=== PATIENT | female | born 1955 | race Caucasian/White ===

== ENCOUNTER 2019-12-22 19:46 | Inpatient (IN) | payer MEDICARE, MEDICAID, OTHER ==
[~2019-12-22 19:46] MED LIST: Iopamidol-370 76% 500 ML 1 ML ONE
[2019-12-22] MEDS ORDERED: Morphine 4 MG/ML VIAL ONE ×2 (20:25→23:43)
[2019-12-22] MEDS ORDERED: Ondansetron PF 4 MG/2 ML Vial ONE (20:25)
[2019-12-22 20:39] LABS: #Basophils 0.1 thou/uL (0.0-0.2); #Eosinphils 0.1 thou/uL (0.0-0.7); #Lymphocytes 1.3 thou/uL (1.20-3.40); #Monocytes 0.9 thou/uL (0.11-0.59); #Neutrophils 8.8 thou/uL (1.40-6.50); %Basophils 0.6 % (0.0-1.0); %Eosinophils 1.2 % (0.0-10.0); %Lymphocytes 11.5 % (21.0-51.0); %Monocytes 8.2 % (0.0-10.0); %Neutrophils 78.4 % (42.0-75.0); Hemoglobin 13.5 g/dL (12.0-16.0); Mean Corpuscular HGB CONC 33.3 g/dL (32.0-36.0); Mean Corpuscular Hemoglobin 32.8 pg (27.0-31.0); Mean Corpuscular Volume 98.2 fL (78.0-98.0); Mean Platelet Volume 7.9 fL (7.4-10.4); Platelet Count 196 thou/uL (130-400); RBC Distribution Width 11.5 % (11.5-14.5); Red Blood Cell (RBC) Count 4.11 mill/uL (4.20-5.40); White Blood Cell (WBC) Count 11.2 thou/uL (4.8-10.8)
[2019-12-22 21:07] LABS: ALT (SGPT) 7 U/L (8-55); AST (SGOT) 21 U/L (5-34); Albumin 3.5 g/dL (3.4-4.8); Alkaline Phosphatase 160 U/L (40-110); Anion Gap 11 mmol/L (10-20); BUN (Urea Nitrogen) 13 mg/dL (9.8-20.1); Bilirubin, Total 0.2 mg/dL (0.2-1.2); Calc. Creatinine Clearance 0 mL/min (70-130); Calcium 8.3 mg/dL (7.8-10.44); Carbon Dioxide 22 mmol/L (23-31); Chloride 104 mmol/L (98-107); Estimated GFR-MDRD 85; Globulin 3.2 g/dL (2.4-3.5); Glucose 109 mg/dL (80-115); Lipase 14 U/L (8-78); Potassium 4.4 mmol/L (3.5-5.1); Protein, Total 6.7 g/dL (6.0-8.3); Sodium 133 mmol/L (136-145)
--- NOTE | 2019-12-22 22:06 | CT ---
CT ABDOMEN AND PELVIS PERFORMED WITH CONTRAST ENHANCEMENT: 12/22/19 HISTORY: Patient with a diagnosis of sigmoid volvulus which required surgery. Cholecystectomy was also perform ed at the time of the colon surgery. Now complaining of abdominal distention and pain. COMPARISON: A 11/18/19 study. Lung bases shows some bibasilar somewhat ground glass opacities which could represent some early pneu monitis change or just be on the basis of atelectasis related to less than optimal inspiration. The l iver, spleen, and pancreas regions appear unremarkable. The gallbladder has been removed. Right and left adrenal glands are normal in appearance. The kidneys are not obstructed. There is alexandr ical thinning involving the lower pole region of the left kidney. Tiny cysts are identified. No signi ficant periaortic or mesenteric adenopathy. There is marked gaseous distention of the ascending, nelson sverse and descending colon. there is an anastomotic suture line seen at the junction of the descendi ng and sigmoid colon. The colon appears to be narrowed at the level of the anastomosis but directly b elow this level. This sigmoid colon is distended with stool all the way to the rectum. There is no p neumatosis and no free fluid demonstrated. No evidence of any abscess collection. Scoliotic change of the spine is noted. IMPRESSION: 1. Marked gaseous distention of the colon to the level of the anastomotic suture line of the sig moid colon. There appears to be focal narrowing at the anastomosis; however, the colon is very dilate d below this level and completely stool filled from the level of the anastomotic suture line to the r ectum. No free fluid, abscess or other findings. 2. Post cholecystectomy change. 3. Mildly atrophic left kidney. 4. Scoliosis and arthritic changes of the spine. POS: Eliseo
[2019-12-22] MEDS ORDERED: Benzocaine 20% Spray 60 ML CAN ONE (22:13)
[2019-12-22] MEDS ORDERED: Lidocaine Viscous Sol 2% 15 ml UD Cup ONE ×2 (22:13→22:38)
[2019-12-23] MEDS ORDERED: Morphine 2 MG/ML VIAL SLOW IVP PRN (01:35)
[2019-12-23] MEDS ORDERED: Ondansetron PF 4 MG/2 ML Vial IVP PRN ×2 (01:45→13:40)
[2019-12-23] MEDS ORDERED: Ondansetron ODT 4 MG TAB SL PRN (01:45)
[2019-12-23] MEDS ORDERED: Acetaminophen 325 MG TAB PO PRN ×4 (01:45→18:24)
[2019-12-23] MEDS ORDERED: HYDROcodone/Acetaminophen 5/325 mg Tablet PO PRN ×2 (01:45)
[2019-12-23] MEDS ORDERED: Sodium Chloride 0.9% 1,000 ML IV SCH (01:45)
[2019-12-23 01:46] VITALS: BMI 23.8
[2019-12-23] MEDS ORDERED: MD-Gastroview 120 ML BOT ONE (09:24)
[2019-12-23] MEDS: Morphine 2 MG/ML VIAL SLOW IVP PRN (13:52)
[2019-12-23] MEDS: D5 1/2 NS w/20 mEq KCL 1,000 ML IV SCH ×2 (13:53→22:09)
[2019-12-23] MEDS ORDERED: Fleet Enema 133 ML BOT PR SCH (14:00)
[2019-12-23] MEDS ORDERED: Pantoprazole 40 MG VIAL IVP SCH (14:00)
--- NOTE | 2019-12-23 17:14 | RAD ---
Gastrografin enema HISTORY: Abdomen pain. History of volvulus. Disimpaction. FINDINGS: There is marked gaseous distention of the colon and partial gaseous distention of the small bowel. Gastrografin contrast was carefully administered per rectum. There was immediate opacification of the gaseous distended rectum and left colon. Postsurgical changes consistent with re cent sigmoidectomy. Narrowing at the anastomosis is noted, although there is free flow of Gastrografin. Lumen estimated at 1.9 cm diameter. There was successful contrast opacification to the level of the transverse colon, although the gaseou s distention of the colon prevented further retrograde opacification. No evidence of leak from the colon/anastomosis. IMPRESSION : Recent sigmoid colectomy. With marked gaseous distention of the colon, there is relative narrowing at the anastomosis (1.9 cm), but no obstruction of contrast flow. No evidence of leak or recurrent volvulus.
[2019-12-23] MEDS ORDERED: Sodium Chloride 0.9% (PF) 10 ML VIAL FS PRN (18:45)
[2019-12-23] MEDS ORDERED: Acetaminophen 325 MG TAB PER TUBE PRN ×3 (20:00)
[2019-12-23] MEDS: clonazePAM 1 MG TAB PER TUBE SCH (22:06)
[2019-12-23] MEDS: OXcarbazepine 300 MG/5 ML UDCUP PER TUBE SCH (22:06)
[2019-12-23] MEDS: levETIRAcetam 500 mg/5 ml Oral Solution PER TUBE SCH (22:07)
[2019-12-23] MEDS: Pantoprazole 40 MG VIAL IVP SCH (22:08)
[2019-12-23] MEDS: Zolpidem Tartrate 5 MG TAB PER TUBE SCH (22:09)
[2019-12-23] MEDS: PHENobarbital 32.4 MG TAB PER TUBE SCH (22:20)
[2019-12-23] MEDS: Lacosamide 50 mg Tablet PO SCH (22:21)
--- NOTE | 2019-12-24 01:04 | PDOC.CONS ---
- Consultation Encounter Date: 12/24/19 Encounter Time: 00:15 Consulting provider: Dr. Vicente Reason for consult: Medical management CC: Abdominal distention and pain. HPI: 64-year-old woman with a history of developmental delay and seizure disorder recently hospitalized for sigmoid volvulus and gallstones, status post cholecystectomy and colectomy with end anastomosis presented to the emergency department with a complaint of abdominal pain and distention. X-ray of the abdomen showed dilated loops of large bowel and small bowel patient was subsequently admitted to the surgical service for further management. Hospitalist service is consulted to assist with management of her medical issues which significantly include epilepsy and GERD. Past medical history: Epilepsy, GERD, history of CVA with residual hemiplegia and dysarthria Past surgical history: Cholecystectomy, colectomy Allergies: No known drug allergies Current medications: Medication Instructions Recorded Confirmed Type Furosemide 20 mg PO DAILY 11/19/19 12/23/19 History OXcarbazepine [Oxcarbazepine] 600 mg PO BID 11/19/19 12/23/19 History PHENobarbital 32.4 mg PO BID 11/19/19 12/23/19 History Potassium Chloride 20 meq PO BID 11/19/19 12/23/19 History Zolpidem Tartrate [Ambien] 5 mg PO HS 11/19/19 12/23/19 History Acetaminophen [Tylenol Regular 650 mg PO Q6H PRN tab 11/25/19 12/23/19 Rx Strength] Ipratropium/Albuterol Sulfate 3 ml NEB Q4H PRN neb 11/25/19 12/23/19 Rx [DuoNeb] Lacosamide [Vimpat] 200 mg PO BID tab 11/25/19 12/23/19 Rx Polyethylene Glycol 3350 [Miralax] 17 gm PO DAILY pk 11/25/19 12/23/19 Rx clonazePAM [Klonopin] 1 mg PO TID tab 11/25/19 12/23/19 Rx levETIRAcetam [Keppra Oral 1,500 mg PO BID 30 Days #1000 ml 11/25/19 12/23/19 Rx Solution] Family history: Reviewed and noncontributory Social history: Non-smoker, does not drink alcohol. No illicit drug use. Review of systems Except as documented, all other systems reviewed and negative Physical examination: General: Not in acute distress. HEENT: PERRLA, EOMI, anicteric sclera, conjunctiva not pale. Neck: Supple, no elevated JVD, no thyromegaly. Lungs: Clear to auscultation bilaterally. No rhonchi, no rales, no crackles. Heart: S1-S2 heard, rapid, no murmur no gallop no rub. Normal capillary refill. Abdomen: Soft, nontender, nondistended, no hepatosplenomegaly. Normal bowel sounds Extremities: No pedal edema. Bilateral club feet, left upper extremity contracted. Neuro: No cranial nerve deficit, left hemiplegia Psychiatry: Awake, not agitated. Skin: Warm and dry, no rashes. A/P: 1. Bowel obstruction: Management per surgery-primary team. Optimize electrolytes. Monitor BMP and replete electrolytes as needed. 2. Seizure disorder: Continue home antiepileptics. Can remove suction the tube for couple of hours after NG tube administration. We will have Ativan IV as needed for breakthrough seizures. 3. GERD: IV Protonix. I am unable to discuss advanced care planning due to lack of capacity and no family member by bedside.
[2019-12-24] MEDS ORDERED: Lorazepam 2 MG/ML VIAL SLOW IVP PRN ×2 (01:05→10:55)
--- NOTE | 2019-12-24 05:49 | HP ---
CHIEF COMPLAINT: Abdominal pain. HISTORY OF PRESENT ILLNESS: Ms. Albright is a 64-year-old woman with a severe seizure disorder and developmental delay, nonambulatory, who presented last month with a sigmoid volvulus. She underwent sigmoid colectomy and had rapid resumption of bowel function. She did have a prolonged hospitalization due to uncontrolled seizures and concern for dysphagia which limited her advancement of diet, but was able to be advanced with aspiration precautions and was discharged home. About a week after her surgery, she was doing fine until shortly before her presentation to the emergency room when she developed fairly severe abdominal pain. No nausea or vomiting and unable to really report when she last had flatus or bowel movements. Plain films at an outside ER were concerning for small bowel obstruction, so they sent her back to [facility], where a CT scan showed colonic distention and the colon was quite distended down to the level of the anastomosis which appeared relatively narrow; however, there was no stool above this level, just a lot of gas. Below the level of the anastomosis, however, the entire rectum was packed with stool. The ER was planning to perform disimpaction. Before they could do that, the patient had two large spontaneous bowel movements. They gave her a Fleet enema to try to clear out the rest of her rectum and see if she would then decompress her colon, but she continued to have abdominal pain, so she was admitted. She received additional enemas today without much improvement. She continues to intermittently have abdominal pain and she cannot tell me if she is passing flatus. PAST MEDICAL HISTORY: Developmental delay and epilepsy. Chart notes report hemiplegia and dysarthria from a stroke, but upon discussion with the patient and her uncle who is her guardian, they deny any history of stroke or heart attack. She has had frequent falls and broken bones as a result of poor balance and is now nonambulatory. PAST SURGICAL HISTORY: Left hip ORIF and ankle fracture and sigmoid colectomy about a month ago. FAMILY HISTORY: Noncontributory. SOCIAL HISTORY: She does not smoke, drink, or use illicit drugs. Her uncle is her guardian, medical power of prosecuting attorney and the patient states that he has authority to make decisions on her behalf. OUTPATIENT MEDICATIONS: Include, 1. Clonazepam 1 mg p.o. t.i.d. 2. Lasix 20 mg p.o. daily. 3. Vimpat 200 mg p.o. b.i.d. 4. Levetiracetam 1500 mg p.o. b.i.d. 5. Oxcarbazepine 600 mg p.o. b.i.d. 6. Phenobarbital 32.4 p.o. b.i.d. 7. MiraLAX daily. 8. Potassium 20 mEq p.o. b.i.d. 9. Ambien 5 mg p.o. at bedtime. 10. P.r.n. DuoNeb. 11. P.r.n. Tylenol. PHYSICAL EXAMINATION: GENERAL: Reveals a pleasant woman, in no acute distress. She denies any pain currently. She denies any nausea. She does have an NG tube in place, but there is not much output. HEENT: Unremarkable. NECK: Supple without lymphadenopathy or thyroid nodules. HEART: Regular in its rate and rhythm without murmurs, rubs, or gallops. LUNGS: Clear to auscultation bilaterally. ABDOMEN: Soft, mildly tender to palpation in the right abdomen greater than left abdomen. No rigidity, rebound, or guarding. Incisions are well healed. No palpable masses or hernias. Bowel sounds are diminished. EXTREMITIES: Warm and well perfused. NEURO: Diffusely weak. Speech is slow, but understandable. No witnessed seizures since admission. RECTAL: There was a moderate amount of liquid stool in the rectal vault, some of which she passed during the rectal examination. There was no passage of flatus during the examination. LABORATORY DATA: White count is mildly elevated. IMAGING DATA: CT images are reviewed and I agree with the written report. ASSESSMENT: Anastomotic stricture, but no evidence of stool impaction proximal to the anastomosis. She did have stool impacted in the rectum, but spontaneously evacuated most of this; however, she has not passed significant amount of flatus since that time. The patient does have some chronic colonic dysfunction with her history of sigmoid volvulus and it is possible that with relative colonic atony that a stricture that is not causing any obstruction may still be enough to cause the colon to become distended. The other explanation is that she developed fecal impaction which then caused retrograde I am going to order a Gastrografin enema to evacuate the rest of the stool in the rectum and get a better look at the anastomosis. Unfortunately, her options are not great at this point. She is about a month out from surgery, which is not the ideal time to intervene either colonoscopically or surgically. On the other hand with a potentially partially obstructing stricture, promotility agents may not be the best option either. She had a wide anastomosis at the time of her surgery using a 75 mm stapler, so if she has stricture this rapidly after surgery, then repeat operation with revision of the anastomosis could re-stricture. Given her overall medical state, if I do need to reoperate, I would recommend a colostomy which I know the patient and her family were hoping to avoid. In addition, if the primary problem is colonic dysmotility, a colostomy may not completely address that problem and she could continue to have colonic distention and dysfunction. On the other hand, an ileostomy would be difficult for her to manage and would put her at high risk for dehydration and other problems related to ileostomy, which are not as well as tolerated and in the elderly and infirm. I am going to ask Gastroenterology to see her and gain their input. I will need to have a discussion with her power of prosecuting attorney. I did try to reach her uncle today, but was only able to leave a voicemail. I am going to order all of her home medications since she had fairly difficult to manage seizures after missing just a few doses of her antiseizure medications admission, and I will ask hospitalist team to help manage her medical issues. Job ID: [id number]
[2019-12-24] MEDS: Morphine 2 MG/ML VIAL SLOW IVP PRN (06:07)
[2019-12-24] MEDS: D5 1/2 NS w/20 mEq KCL 1,000 ML IV SCH ×4 (06:40→20:21)
[2019-12-24 06:49] LABS: #Eosinphils 0.2 thou/uL (0.0-0.7); #Lymphocytes 1.2 thou/uL (1.20-3.40); #Neutrophils 6.9 thou/uL (1.40-6.50); %Basophils 0.2 % (0.0-1.0); %Eosinophils 1.7 % (0.0-10.0); %Lymphocytes 13.2 % (21.0-51.0); %Monocytes 10.8 % (0.0-10.0); %Neutrophils 74.1 % (42.0-75.0); Hemoglobin 11.8 g/dL (12.0-16.0); Mean Corpuscular HGB CONC 32.9 g/dL (32.0-36.0); Mean Corpuscular Hemoglobin 33.2 pg (27.0-31.0); Mean Platelet Volume 7.5 fL (7.4-10.4); Platelet Count 175 thou/uL (130-400); RBC Distribution Width 11.3 % (11.5-14.5); Red Blood Cell (RBC) Count 3.56 mill/uL (4.20-5.40); White Blood Cell (WBC) Count 9.3 thou/uL (4.8-10.8)
[2019-12-24 07:17] LABS: Anion Gap 10 mmol/L (10-20); BUN (Urea Nitrogen) 5 mg/dL (9.8-20.1); Calc. Creatinine Clearance 104 mL/min (70-130); Carbon Dioxide 23 mmol/L (23-31); Chloride 106 mmol/L (98-107); Estimated GFR-MDRD Greater than 90; Glucose 113 mg/dL (80-115); Potassium 3.7 mmol/L (3.5-5.1); Sodium 135 mmol/L (136-145)
--- NOTE | 2019-12-24 08:13 | RAD ---
Radiograph abdomen 2 views: 12/24/2019 7:50 AM HISTORY: 64-year-old female with abdominal distention. FINDINGS: A total of 3 images, supine and left lateral decubitus. Gaseous distention of tortuous loops of colon occupying entire abdominal field on supine view. Air-fluid levels in distended colon on lateral view. No pneumoperitoneum identified on lateral decubi tus view. Enteric contrast material residual in the rectum, but not in the rest of the colon. Decompressed deniz l loop in the lower pelvis. Excreted IV contrast material in the urinary bladder. IMPRESSION: Gaseous distention of colon.
[2019-12-24 09:04] LABS: Magnesium 1.8 mg/dL (1.6-2.6); Phosphorus 2.6 mg/dL (2.3-4.7)
[2019-12-24] MEDS: PHENobarbital 32.4 MG TAB PER TUBE SCH (09:21)
[2019-12-24] MEDS: Lacosamide 50 mg Tablet PO SCH (09:22)
[2019-12-24] MEDS: clonazePAM 1 MG TAB PER TUBE SCH ×3 (09:23→20:18)
[2019-12-24] MEDS: levETIRAcetam 500 mg/5 ml Oral Solution PER TUBE SCH (09:23)
[2019-12-24] MEDS: Pantoprazole 40 MG VIAL IVP SCH ×2 (09:24→20:21)
[2019-12-24] MEDS: OXcarbazepine 300 MG/5 ML UDCUP PER TUBE SCH ×2 (09:44→20:19)
--- NOTE | 2019-12-24 09:59 | PDOC.GSPN ---
Surgery Progress Note: Subj - Subjective Narrative: Patient is feeling fine this morning. She denies any abdominal pain. She denies passing flatus. She did have some bowel movements yesterday after the Gastrografin enema. Vital signs are stable and labs are okay. Her abdomen is soft nontender nondistended. Her colon is still very dilated on abdominal film but all the Gastrografin has either been evacuated or is in her rectum. There is none retained proximal to the anastomosis. Assessment/plan: Severely dilated and redundant colon with anastomotic narrowing status post resection of sigmoid volvulus. I was able to reach Ms. Albright's uncle today by phone and discuss her situation with him. I also discussed the case with Dr. Reyes of gastroenterology. Certainly the degree of narrowing that she has at her anastomosis should not keep gas or liquid stool from passing, but her colon remains very dilated. The Gastrografin has all come back down into the rectum and she has evacuated some of it overnight. I think the primary problem is severe colonic dysmotility, and I think she will continue to have problems with this. She has a very dilated and redundant colon and I think her problems would likely persist even with a descending colostomy. However, a total colostomy and ileostomy would be quite morbid in her situation and will put her at risk for dehydration, leakage, skin erosions and other problems. I think the best compromise is to perform a left colectomy and a transverse colostomy, although there is certainly a risk that she could have continued problems with cecal distention and dysfunction, in which case another surgery to resect the right colon and perform an ileostomy might be necessary. I do however think this would be easier for her to manage then an ileostomy from a fluid balance and electrolyte standpoint. The other alternative would be to try to dilate the anastomosis and see if this helps, along with an aggressive bowel regimen to prevent disimpaction, but I really think the anastomotic narrowing is just a contributing factor and that the underlying issue is chronic lifelong functional constipation and resulting colonic atony. The uncle is going to disc uss the issue with his niece and I am going to have the wound care team do some colostomy education. If they decide to proceed, I will put her on the operating room schedule for tomorrow for a left colectomy and transverse colostomy. If they want to try more conservative measures then Dr. Reyes will assist. Surgery Progress Note: Obj - Vital signs Vital signs: Vital Signs - Most Recent Temp Pulse Resp BP Pulse Ox 98.6 F 49 L 16 96/59 L 99 12/24/19 07:19 12/24/19 07:19 12/24/19 07:19 12/24/19 07:19 12/24/19 07:19 Surgery Progress Note: Results - Labs Result Diagrams: 12/24/19 06:17 12/24/19 06:17 Lab results: Laboratory Results - last 12 hr 12/24/19 12/24/19 12/24/19 06:17 06:17 06:17 WBC 9.3 RBC 3.56 L Hgb 11.8 L Hct 35.9 L MCV 101.0 H MCH 33.2 H MCHC 32.9 RDW 11.3 L Plt Count 175 MPV 7.5 Neutrophils % 74.1 Lymphocytes % 13.2 L Monocytes % 10.8 H Eosinophils % 1.7 Basophils % 0.2 Neutrophils # 6.9 H Lymphocytes # 1.2 Monocytes # 1.0 H Eosinophils # 0.2 Basophils # 0.0 Sodium 135 L Potassium 3.7 Chloride 106 Carbon Dioxide 23 Anion Gap 10 BUN 5 L Creatinine 0.56 L Estimated GFR (MDRD) Greater than 90 Glucose 113 Calcium 8.0 Phosphorus 2.6 Magnesium 1.8
[2019-12-24] MEDS ORDERED: Magnesium 2 GM/50 ML 2 GM in Premix Bag 1 BAG IVPB SCH (11:00)
[2019-12-24] MEDS ORDERED: Labetalol HCl 100 MG/20 ML VIAL SLOW IVP PRN (11:01)
[2019-12-24] MEDS ORDERED: cloNIDine 0.1 MG TAB PO PRN (11:01)
[2019-12-24 12:47] LABS: SARS-CoV-2 MS2 Positive; SARS-CoV-2 N Gene Negative; SARS-CoV-2 S Gene Negative; SARS-CoV-2 by NAA Not Detected (NotDetected); SARS-CoV-2 orf1ab Negative
[2019-12-24] MEDS ORDERED: Bisacodyl 10 MG SUPP FS SCH (14:30)
[2019-12-24] MEDS: Bisacodyl 10 MG SUPP PR SCH (17:30)
[2019-12-24] MEDS: levETIRAcetam In NaCl (Iso-Os) 1,500 MG in Premix Bag 1 BAG IVPB SCH (20:11)
[2019-12-24] MEDS: Zolpidem Tartrate 5 MG TAB PER TUBE SCH (20:19)
[2019-12-24] MEDS: Lacosamide 200 MG in Sodium Chloride 0.9% 50 ML IVPB SCH (21:21)
[2019-12-24] MEDS: PHENobarbital Sodium 65 MG/ML VIAL SLOW IVP SCH (21:22)
[2019-12-24] MEDS: Lorazepam 2 MG/ML VIAL SLOW IVP PRN (23:38)
[2019-12-25] MEDS: Bisacodyl 10 MG SUPP PR SCH ×2 (02:07→14:44)
[2019-12-25] MEDS: D5 1/2 NS w/20 mEq KCL 1,000 ML IV SCH ×2 (05:36→16:03)
[2019-12-25] MEDS: Lorazepam 2 MG/ML VIAL SLOW IVP PRN (05:37)
[2019-12-25 05:50] LABS: #Eosinphils 0.1 thou/uL (0.0-0.7); #Lymphocytes 1.3 thou/uL (1.20-3.40); #Monocytes 0.7 thou/uL (0.11-0.59); #Neutrophils 6.3 thou/uL (1.40-6.50); %Eosinophils 1.8 % (0.0-10.0); %Monocytes 8.2 % (0.0-10.0); Hemoglobin 11.3 g/dL (12.0-16.0); Mean Corpuscular HGB CONC 33.1 g/dL (32.0-36.0); Mean Corpuscular Hemoglobin 32.6 pg (27.0-31.0); Mean Corpuscular Volume 98.4 fL (78.0-98.0); Platelet Count 186 thou/uL (130-400); RBC Distribution Width 11.3 % (11.5-14.5); Red Blood Cell (RBC) Count 3.48 mill/uL (4.20-5.40); White Blood Cell (WBC) Count 8.4 thou/uL (4.8-10.8)
[2019-12-25 06:19] LABS: Anion Gap 13 mmol/L (10-20); BUN (Urea Nitrogen) Less than 4 mg/dL (9.8-20.1); Calc. Creatinine Clearance 101 mL/min (70-130); Calcium 8.7 mg/dL (7.8-10.44); Carbon Dioxide 23 mmol/L (23-31); Chloride 107 mmol/L (98-107); Estimated GFR-MDRD Greater than 90; Glucose 117 mg/dL (80-115); Magnesium 1.9 mg/dL (1.6-2.6); Potassium 3.9 mmol/L (3.5-5.1); Sodium 139 mmol/L (136-145)
--- NOTE | 2019-12-25 07:45 | CON ---
DATE OF CONSULTATION: CONSULTING PHYSICIAN: Dr. Davies. REASON FOR CONSULT: Abdominal distention. HISTORY OF PRESENT ILLNESS: Ms. Goff underwent a colonic decompression for sigmoid volvulus in November. Ultimately, she had a sigmoid resection for this. She has had a long history of obstipation, colonic distention, related to her decreased motility and multiple medications including several seizure medicines. Apparently, she had resumption of bowel function. She was cleared for oral intake by Speech Path and was discharged home. On the day prior to admission, she presented to an outside emergency room with abdominal distention, constipation, nausea, vomiting. Plain films noted colonic distention. She was transferred here. Here, CAT scan shows copious amounts of gas above her anastomosis and a large fecal impaction from the anastomosis in her rectum. Ultimately, this was cleared in the emergency room and her bowels began to move. To evaluate the anastomosis, she had a Gastrografin enema, which showed about a 17 mm opening. Today, she has not had much in the way of bowel movements. I have been asked to see her for opinion on medical management. PAST MEDICAL HISTORY: 1. Developmental delay, epilepsy, seizures were a major part of her last hospitalization with episodes of almost status epilepticus at times. 2. Hemiplegia and dysarthria from prior stroke. Uncle is her guardian. PAST SURGICAL HISTORY: Left hip ORIF, ankle fracture, sigmoid colectomy. SOCIAL HISTORY: She resides at [facility]. She does not smoke, drink, or use drugs. She has lived there for about 15 years. Again, her uncle helps her make decisions. MEDICATIONS: Medicines there; 1. Clonazepam. 2. Lasix. 3. Vimpat. 4. Levetiracetam. 5. Oxcarbazepine. 6. Phenobarbital. 7. MiraLAX once a day. 8. Potassium. 9. Ambien. 10. DuoNeb. 11. Tylenol. Medications here; 1. P.r.n. Tylenol. 2. DuoNeb. 3. Klonopin 1 mg t.i.d. 4. Labetalol p.r.n. 5. Vimpat 200 mg b.i.d. 6. Keppra oral solution 1500 mg b.i.d. 7. Ativan p.r.n. 8. Morphine p.r.n. 9. Zofran p.r.n. 10. Trileptal, which is oxcarbazepine. 11. Protonix 40 mg q.12. 12. Phenobarbital. 13. Ambien. PHYSICAL EXAMINATION: VITAL SIGNS: Temperature max 98, pulse 49, blood pressure 96/59 to 107/65. GENERAL: The patient is resting comfortably in bed. She is in no distress. LUNGS: Clear. HEART: Regular rhythm without murmur. ABDOMEN: NG tube is in place, but clamped. Her abdomen is slightly protuberant, very soft. It is nontender. There are positive bowel sounds. There is no rebound or guarding. RECTAL: Reveals loose stool and gas in the rectal vault with a distended rectal vault with gas. With stretching quite copious amount of liquid stool come out. EXTREMITIES: Reveal no clubbing, cyanosis, or edema. LABORATORY DATA: White count is 9.3, down from 11.2; hemoglobin is 11.5; platelet count 175. Alkaline phosphatase 160. Liver function tests normal. BUN and creatinine are 5 and 0.56. TSH on last admission was 0.33. Lipase is 14 this admission, bicarb 22, chloride 104. COVID testing negative on admission. CT and Gastrografin enema evaluated. X-ray earlier this morning, gaseous distention of colon. ASSESSMENT: Colonic inertia. This has been an issue and was probably the reason she ended up with a volvulus in the first place. I think she is going to have distended colon most of the time. There is no overt obstruction at the anastomosis in the sigmoid, descending colon, where there is a component of narrowing or stenosis, I really cannot tell from the films that have been taken. I think a big part of her presentation was a fecal impaction which has nothing to do with her anastomosis. There was no formed stool below the anastomosis, just gas and air which should have come through easily. Presently, she is having liquid stool in the vault, but it just does not want to pass, with the digital rectal examination, it does. Differential diagnosis obviously includes colonic inertia from her medications, developmental delay, and bed-bound status. It does not appear that she has a mechanical obstruction at this time. She is at risk for Clostridium difficile colitis and this needs to be evaluated for too. Recommendations going forward, although converting to a colostomy is an option, I am not sure it is going to change the motility of her colon. I think she will still have a distended colon and issues with that. I think it would be reasonable to try to manage her with digital rectal stimulation today with suppositories and daily MiraLAX and a low residue diet. The patient and uncle are kind of weighing their options at this point in time. The patient states she does not want to have daily suppositories and wants to consider possibly just having the surgery. I have expressed to Dr. Davies that I am available for sigmoidoscopy to evaluate the anastomosis, but if she is going to proceed with surgery, she feels she probably will not need that. We will follow along with and will be available for a sigmoidoscopy tomorrow if needed, otherwise we will wait for stool for C diff. Start IV fluids, MiraLAX, and Dulcolax suppositories. Job ID: [id number]
[2019-12-25] MEDS ORDERED: Magnesium 2 GM/50 ML 2 GM in Premix Bag 1 BAG IVPB SCH (08:30)
[2019-12-25] MEDS: levETIRAcetam In NaCl (Iso-Os) 1,500 MG in Premix Bag 1 BAG IVPB SCH ×2 (08:48→20:20)
[2019-12-25] MEDS: Pantoprazole 40 MG VIAL IVP SCH ×2 (08:49→20:30)
[2019-12-25] MEDS: clonazePAM 1 MG TAB PER TUBE SCH ×3 (08:49→20:26)
[2019-12-25] MEDS: OXcarbazepine 300 MG/5 ML UDCUP PER TUBE SCH ×2 (08:57→20:26)
[2019-12-25] MEDS: PHENobarbital Sodium 65 MG/ML VIAL SLOW IVP SCH ×2 (08:57→21:47)
[2019-12-25] MEDS: Lacosamide 200 MG in Sodium Chloride 0.9% 50 ML IVPB SCH ×2 (08:58→21:48)
[2019-12-25] MEDS ORDERED: Cyanocobalamin 1000 MCG/ML VIAL IM SCH (09:00)
[2019-12-25] MEDS ORDERED: Polyethylene Glycol 3350 17 GM Packet PER TUBE SCH (09:00)
[2019-12-25] MEDS ORDERED: Midazolam HCl 2 mg/2 ml Vial ONE (11:20)
[2019-12-25] MEDS ORDERED: Fentanyl 100 MCG/2 ML VIAL ONE ×3 (11:20→19:09)
[2019-12-25] MEDS ORDERED: Rocuronium Bromide 10 MG/ML (10ML VIAL) ONE (12:02)
[2019-12-25] MEDS ORDERED: Dexamethasone 20 MG/5 ML VIAL ONE (12:02)
[2019-12-25] MEDS ORDERED: PROPOFOL 200 MG/20 ML VIAL ONE (12:02)
[2019-12-25] MEDS ORDERED: EPHEDRINE 25 MG/5 ML SYRINGE ONE (12:02)
[2019-12-25] MEDS ORDERED: Ondansetron PF 4 MG/2 ML Vial ONE (12:02)
[2019-12-25] MEDS ORDERED: Succinylcholine Chloride 20 MG/ML 10 ml SYRINGE FS ONE (12:02)
[2019-12-25] MEDS ORDERED: Lidocaine 1% PF 5 ML VIAL ONE (12:02)
[2019-12-25] MEDS ORDERED: Glycopyrrolate 0.2 MG/ML 5 ML SYRINGE ONE ×2 (12:02)
[2019-12-25] MEDS ORDERED: Bupivacaine HCl 0.5%/Epinephrine 1:200,000/PF 30 ml Vial ONE ×2 (12:02→14:57)
--- NOTE | 2019-12-25 14:53 | PRG ---
DATE OF SERVICE: 12/25/2019 SUBJECTIVE: Ms. Goff has gone back to the OR with Dr. Davies. Her C difficile was negative. RECOMMENDATIONS: In light of her colonic dysmotility, low residue diet, we recommended daily MiraLAX. At this time, we will sign off. If GI can be of any assistance, please do not hesitate to re-consult. Dr. Alegria will be on-call this weekend. Job ID: [id number]
[2019-12-25] MEDS ORDERED: cefOXitin Sodium/Dextrose 2 GM/50 ML BAG ONE (15:15)
[2019-12-25] MEDS ORDERED: SUGAMMADEX SODIUM 200 MG/2 ML VIAL ONE (15:23)
[2019-12-25] MEDS ORDERED: Promethazine HCl 25 MG/ML VIAL SLOW IVP PRN (18:06)
[2019-12-25] MEDS ORDERED: Ondansetron HCl/PF 4 MG/2 ML Vial IVP PRN (18:06)
[2019-12-25] MEDS ORDERED: Promethazine HCl 25 MG/ML VIAL IM PRN (18:06)
[2019-12-25] MEDS ORDERED: traMADol HCl 50 MG TAB PO PRN ×2 (19:15)
[2019-12-25] MEDS ORDERED: traMADol HCl 50 MG TAB PER TUBE PRN ×2 (19:30)
--- NOTE | 2019-12-25 19:42 | PDOC.HOSPP ---
- Subjective Encounter Date: 12/25/19 Encounter Time: 08:00 Subjective: Patient seen and examined for medical management. No overnight events. Denies any fever or chills. No significant change in abdominal discomfort. - Objective Vital Signs & Weight: Weight Admit Weight 147 lb 5.008 oz Weight 147 lb 5 oz I&O: 12/24/19 12/25/19 12/26/19 06:59 06:59 06:59 Intake Total 2450 776 Output Total 400 351 Balance 0 425 Result Diagrams: 12/25/19 05:29 12/25/19 05:29 Additional Labs: Accuchecks 12/25/19 18:57 POC Glucose 121 H Abnormal Lab Results - Last 48 hrs 12/24/19 06:17: Sodium 135 L, BUN 5 L, Creatinine 0.56 L 12/24/19 06:17: RBC 3.56 L, Hgb 11.8 L, Hct 35.9 L, MCV 101.0 H, MCH 33.2 H, RDW 11.3 L, Lymphocytes % 13.2 L, Monocytes % 10.8 H, Neutrophils # 6.9 H, Monocytes # 1.0 H 12/25/19 05:29: BUN Less than 4 L, Creatinine 0.58 L 12/25/19 05:29: RBC 3.48 L, Hgb 11.3 L, Hct 34.2 L, MCV 98.4 H, MCH 32.6 H, RDW 11.3 L, Lymphocytes % 15.0 L, Monocytes # 0.7 H 12/25/19 05:29: Vitamin B12 177 L Microbiology - Entire Visit 12/24/19 15:40 Stool C. difficile GDH Antigen & Toxins - Final Radiology Reviewed by me: Yes (CT abdomencolonic distention) Hospitalist ROS - Review of Systems Respiratory: denies: cough, dry, shortness of breath, hemoptysis, SOB with excertion, pleuritic pain, sputum, wheezing, other Cardiovascular: denies: chest pain, palpitations, orthopnea, paroxysmal noc. dyspnea, edema, light headedness, other - Medication Medications: Active Medications Generic Name Dose Route Start Last Admin Trade Name Freq PRN Reason Stop Dose Admin Acetaminophen 650 mg 12/23/19 20:00 12/24/19 13:02 Acetaminophen 325 Mg Tab PER TUBE 650 mg Q4H PRN Administration Mild Pain (1-3) Bisacodyl 10 mg 12/24/19 14:30 12/25/19 14:44 Bisacodyl 10 Mg Supp [place] Not Given Q12H INGA Clonazepam 1 mg 12/23/19 21:00 12/25/19 16:03 Clonazepam 1 Mg Tab PER TUBE Not Given TID INGA Potassium Chloride/Dextrose/Sod Cl 1,000 mls @ 120 mls/hr 12/23/19 13:45 12/25/19 16:03 D5 1/2 Ns W/20 Meq Kcl IV Not Given .Q8H20M INGA Levetiracetam 1,500 mg/ Device 100 mls @ 200 mls/hr 12/24/19 21:00 12/25/19 08:48 IVPB 100 mls BID INGA Administration Lacosamide 200 mg/ Sodium 70 mls @ 140 mls/hr 12/24/19 21:00 12/25/19 08:58 Chloride IVPB 70 mls BID INGA Administration Lacosamide 200 mg 12/23/19 21:00 12/24/19 09:22 Lacosamide 50 Mg Tablet PO 200 mg BID INGA Administration Levetiracetam 1,500 mg 12/23/19 21:00 12/24/19 09:23 Levetiracetam 500 Mg/5 Ml Oral Solution PER TUBE 1,500 mg BID INGA Administration Lorazepam 0.5 mg 12/24/19 17:33 12/25/19 05:37 Lorazepam 2 Mg/Ml Vial SLOW IVP 0.5 mg Q6H PRN Administration Anxiety/Agitation Morphine Sulfate 2 mg 12/23/19 13:39 12/24/19 06:07 Morphine 2 Mg/Ml Vial SLOW IVP 2 mg Q4H PRN Administration Pain Oxcarbazepine 600 mg 12/23/19 21:00 12/25/19 08:57 Oxcarbazepine 300 Mg/5 Ml Udcup PER TUBE 600 mg BID INGA Administration Pantoprazole Sodium 40 mg 12/23/19 21:00 12/25/19 08:49 Pantoprazole 40 Mg Vial IVP 40 mg Q12HR INGA Administration Phenobarbital 32.4 mg 12/23/19 21:00 12/24/19 09:21 Phenobarbital 32.4 Mg Tab PER TUBE 32.4 mg BID INGA Administration Phenobarbital Sodium 32.4 mg 12/24/19 21:00 12/25/19 08:57 Phenobarbital Sodium 65 Mg/Ml Vial SLOW IVP 32.4 mg BID INGA Administration Polyethylene Glycol 17 gm 12/25/19 09:00 12/25/19 08:49 Polyethylene Glycol 3350 17 Gm Packet PER TUBE 17 gm DAILY INGA Administration Potassium Chloride 20 meq 12/23/19 21:00 12/25/19 08:49 Potassium Chloride 20 Meq Packet PER TUBE 20 meq BID INGA Administration Zolpidem Tartrate 5 mg 12/23/19 21:00 12/24/19 20:19 Zolpidem Tartrate 5 Mg Tab PER TUBE 5 mg HS INGA Administration - Exam General Appearance: ill appearing Heart: RRR, no gallops Respiratory: no wheezes, no ronchi Gastrointestinal: soft, no guarding, no rigidity, distended Gastrointestinal - other findings: Mild generalized tenderness Extremities: no cyanosis Neurological: no new deficit Psychiatric: normal affect, A&O x 3 Hosp A/P - Plan DVT proph w/SCDs 64-year-old female with seizure disorder on multiple antiepileptic drugs presented with abdominal pain. Patient currently admitted under general surgery service. Hospitalist team consulted for medical management #Seizure disorderpatient had a brief seizure during her initial hospital stay. There was no postictal confusion. Phenobarbital, Keppra and Vimpat has been transitioned to IV due to n.p.o. status. Continue lorazepam as needed for seizures. Continue to monitor #Vitamin B12 deficiency. Vitamin B12 was 177. Will start vitamin B12 thousand micrograms weekly for 1 month followed by once per month #Hyponatremiaprobably due to dehydration Continue to monitor #Hypomagnesemia Magnesium was replaced on 12/24 #Anemia probably due to nutritional deficiency Continue to monitor DVT prophylaxis Continue SCDs GERD Continue PPIs
[2019-12-25] MEDS: Zolpidem Tartrate 5 MG TAB PER TUBE SCH (20:31)
[2019-12-25] MEDS: Morphine 2 MG/ML VIAL SLOW IVP PRN (22:22)
[2019-12-25] MEDS: cefOXitin Sodium/Dextrose,Iso 1 GM in Premix Bag 1 BAG IVPB SCH (22:50)
[2019-12-26] MEDS: Bisacodyl 10 MG SUPP PR SCH ×2 (01:11→15:35)
[2019-12-26] MEDS: D5 1/2 NS w/20 mEq KCL 1,000 ML IV SCH ×4 (01:11→19:48)
[2019-12-26] MEDS: cefOXitin Sodium/Dextrose,Iso 1 GM in Premix Bag 1 BAG IVPB SCH ×2 (04:28→09:43)
[2019-12-26] MEDS: Morphine 2 MG/ML VIAL SLOW IVP PRN ×2 (04:28→08:38)
[2019-12-26] MEDS ORDERED: Acetaminophen 325 MG TAB PO PRN ×3 (08:00)
[2019-12-26] MEDS ORDERED: traMADol HCl 50 MG TAB PO PRN (08:15)
[2019-12-26] MEDS: clonazePAM 1 MG TAB PO SCH ×3 (08:36→22:58)
[2019-12-26] MEDS: OXcarbazepine 300 MG TAB PO SCH ×2 (08:37→22:59)
[2019-12-26] MEDS: levETIRAcetam In NaCl (Iso-Os) 1,500 MG in Premix Bag 1 BAG IVPB SCH (08:37)
[2019-12-26] MEDS: Potassium Chloride 20 MEQ TAB PO SCH ×2 (08:38→22:59)
[2019-12-26] MEDS: Polyethylene Glycol 3350 17 GM Packet PO SCH (08:38)
[2019-12-26] MEDS: Pantoprazole 40 MG VIAL IVP SCH ×2 (08:39→23:00)
[2019-12-26] MEDS: Lacosamide 200 MG in Sodium Chloride 0.9% 50 ML IVPB SCH (09:23)
[2019-12-26] MEDS: PHENobarbital 32.4 MG TAB PO SCH ×2 (09:23→22:59)
[2019-12-26] MEDS: PHENobarbital Sodium 65 MG/ML VIAL SLOW IVP SCH (09:23)
--- NOTE | 2019-12-26 12:57 | PDOC.OP ---
Operative Note - Operative Note Operative Note: PROCEDURE: Laparoscopic hand-assisted left colectomy with transverse colostomy SURGEON: Agusto Davies M.D. 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 She represented with fecal impaction and megacolon. She had an anastomotic narrowing with only liquid stool and gas above the anastomotic narrowing. It was felt that she would have ongoing problems with colonic dysmotility and she did not want to undergo daily suppositories and enemas so the decision was made to proceed with colostomy. Due to the chronically dysfunctional dilated redundant colon the decision was made to perform transverse colostomy removing the distal transverse and left colon down to the level of the anastomosis. FINDINGS: Diffusely distended and redundant colon. PROCEDURE IN DETAIL: After informed consent was obtained and appropriate IV antibiotics were continued the patient was taken to the operating room and was placed in supine position and general endotracheal anesthesia was administered. The patient was placed in supine position and prepped and draped in standard sterile fashion. Tap block had been performed preoperatively. The 6 cm periumbilical incision was reopened and the the peritoneal cavity was entered under direct vision and no significant adhesions were encountered. A wound protector and GelPort were placed and carbon dioxide gas insufflated to an intra-abdominal pressure 15 which the patient tolerated well. 5 mm ports were placed at the previous laparoscopic port positions in the upper and lateral ab domen and an additional port placed at the left lower quadrant. The transverse mesocolon was dilated very redundant and easily reached up to the abdominal wall. The decision was made to use the right upper quadrant trocar site as the colostomy site so the 5 mm port at this location was changed out to a 12 mm port. A mesenteric window was created at the level of the planned colostomy site using a LigaSure and the omentum mobilized away from the transverse colon at this location, and distally to the level of the splenic flexure. A laparoscopic stapler was placed across the transverse colon, closed and fired. The mesorectum was then divided using LigaSure down to the level of the anastomosis. The entire colon was redundant and intra-abdominal with a very elongated mesentery and dissection was carried out immediately adjacent to the colon wall. The colon was divided with another load of the stapler just below the level of the anastomosis and removed through the wound protector. On ex amination some of the mobilized omentum appeared to be somewhat devascularized so this was removed as well. The remaining omentum appeared healthy. The right upper quadrant trocar was removed and a circular incision made and dissection carried down to the anterior rectus sheath. This was incised in a cruciate manner. The underlying rectus muscles were split longitudinally and the posterior rectus sheath incised in a cruciate manner. The tract was dilated and the transverse colon brought out through the incision and secured with a Milli clamp. This was confirmed to be in the correct orientation without twisting and was secured to the rectus sheath with Vicryl sutures. The small bowel and omentum were drawn down to their normal anatomic position. The GelPort and wound protector were removed and Seprafilm placed anterior to the omentum. The fascia was closed with a running PDS suture. The wound was copiously irrigated and the skin incisions were all closed with running subcuticular Monocryl sutures. Dermabond dressings were placed and once this was dry the colostomy was matured. The staple line was excised and a [place] colostomy created by taking full- thickness bites of the edge of the colon, Lembert's sutures a few centimeters proximally and securing this to the dermis at 4 quadrants. The colostomy was secured to the skin with full-thickness bites of the edge of the colostomy to the dermis at intervals between the sutures. The colostomy was palpated and was widely patent through the fascia. A colostomy appliance was applied. The patient was extubated and taken to recovery in good condition. Estimated blood loss was minimal. There were no complications. Specimen is left colon and omentum.
--- NOTE | 2019-12-26 18:46 | PRG ---
DATE OF SERVICE: 12/26/2019 SUBJECTIVE: Shell Albright is status post laparoscopic left colectomy and colostomy. The patient is doing well. OBJECTIVE: VITAL SIGNS: Temperature 98.6 degrees, pulse 52, blood pressure 102/56. LUNGS: Clear to auscultation. CARDIAC: Regular rate and rhythm with no murmur, rub, or gallop. ABDOMEN: Soft. Colostomy healthy, right upper quadrant. EXTREMITIES: Unremarkable. LABORATORY DATA: None today. ASSESSMENT AND PLAN: The patient is doing well. We will advance her diet to full liquids today, regular diet tomorrow. Saline lock her. Job ID: [id number]
--- NOTE | 2019-12-26 21:28 | PDOC.HOSPP ---
- Subjective Encounter Date: 12/26/19 Encounter Time: 12:30 Subjective: Patient seen and examined for medical management. Pain controlled on current Medications. Denies any nausea or vomiting. On a clear liquid diet. - Objective Vital Signs & Weight: Vital Signs (12 hours) Temp Pulse Resp BP Pulse Ox 12/26/19 19:51 98.0 F 58 L 20 102/65 99 Weight Admit Weight 147 lb 5.008 oz Weight 147 lb 5 oz I&O: 12/25/19 12/26/19 12/27/19 06:59 06:59 06:59 Intake Total 776 1200 Output Total 351 1600 Balance 425 -400 Result Diagrams: 12/25/19 05:29 12/25/19 05:29 Additional Labs: Accuchecks 12/26/19 05:15 POC Glucose 116 H Hospitalist ROS - Review of Systems Respiratory: denies: cough, dry, shortness of breath, hemoptysis, SOB with excertion, pleuritic pain, sputum, wheezing, other Cardiovascular: denies: chest pain, palpitations, orthopnea, paroxysmal noc. dyspnea, edema, light headedness, other - Medication Medications: Active Medications Generic Name Dose Route Start Last Admin Trade Name Freq PRN Reason Stop Dose Admin Bisacodyl 10 mg 12/24/19 14:30 12/26/19 15:35 Bisacodyl 10 Mg Supp [place] Not Given Q12H INGA Clonazepam 1 mg 12/26/19 09:00 12/26/19 16:10 Clonazepam 1 Mg Tab PO 1 mg TID INGA Administration Potassium Chloride/Dextrose/Sod Cl 1,000 mls @ 120 mls/hr 12/23/19 13:45 12/26/19 19:48 D5 1/2 Ns W/20 Meq Kcl IV 1,000 mls .Q8H20M INGA Administration Lacosamide 200 mg 12/23/19 21:00 12/24/19 09:22 Lacosamide 50 Mg Tablet PO 200 mg BID INGA Administration Levetiracetam 1,500 mg 12/23/19 21:00 12/24/19 09:23 Levetiracetam 500 Mg/5 Ml Oral Solution PER TUBE 1,500 mg BID INGA Administration Lorazepam 0.5 mg 12/24/19 17:33 12/25/19 05:37 Lorazepam 2 Mg/Ml Vial SLOW IVP 0.5 mg Q6H PRN Administration Anxiety/Agitation Morphine Sulfate 2 mg 12/23/19 13:39 12/26/19 08:38 Morphine 2 Mg/Ml Vial SLOW IVP 2 mg Q4H PRN Administration Pain Oxcarbazepine 600 mg 12/26/19 09:00 12/26/19 08:37 Oxcarbazepine 300 Mg Tab PO 600 mg BID INGA Administration Pantoprazole Sodium 40 mg 12/23/19 21:00 12/26/19 08:39 Pantoprazole 40 Mg Vial IVP 40 mg Q12HR INGA Administration Phenobarbital 32.4 mg 12/26/19 09:00 12/26/19 09:23 Phenobarbital 32.4 Mg Tab PO 32.4 mg BID INGA Administration Polyethylene Glycol 17 gm 12/26/19 09:00 12/26/19 08:38 Polyethylene Glycol 3350 17 Gm Packet PO 17 gm DAILY INGA Administration Potassium Chloride 20 meq 12/26/19 09:00 12/26/19 08:38 Potassium Chloride 20 Meq Tab PO 20 meq BID INGA Administration - Exam General Appearance: NAD Neck: supple, no JVD Heart: RRR, no gallops Respiratory: no rales, no ronchi Gastrointestinal: soft, no guarding, no rigidity Hosp A/P - Plan DVT proph w/SCDs 64-year-old female with seizure disorder on multiple antiepileptic drugs presented with abdominal pain. Patient currently admitted under general surgery service. Hospitalist team consulted for medical management.Phenobarbital, Keppra and Vimpat were initially changed to IV due to npo status. #Seizure disorderpatient had a brief seizure during her initial hospital stay. There was no postictal confusion. #Vitamin B12 deficiency. Vitamin B12 was 177. #Hyponatremiaprobably due to dehydration #Hypomagnesemia #Anemia probably due to nutritional deficiency #GERD Plan: Change antiepileptic medications to po. Continue clonazepam 3 times a day. Continue vitamin B12 supplementation. Continue supportive care. Check labs in a.m. Continue other medications as above.
[2019-12-26] MEDS: levETIRAcetam 500 mg/5 ml Oral Solution PER TUBE SCH (22:58)
[2019-12-26] MEDS: Lacosamide 50 mg Tablet PO SCH (22:58)
[2019-12-26] MEDS: Zolpidem Tartrate 5 MG TAB PO SCH (23:00)
[2019-12-26] MEDS: traMADol HCl 50 MG TAB PO PRN (23:19)
[2019-12-27] MEDS: D5 1/2 NS w/20 mEq KCL 1,000 ML IV SCH ×4 (04:21→20:58)
[2019-12-27] MEDS: traMADol HCl 50 MG TAB PO PRN ×3 (04:36→20:51)
[2019-12-27 06:14] LABS: #Eosinphils 0.2 thou/uL (0.0-0.7); #Lymphocytes 1.3 thou/uL (1.20-3.40); #Monocytes 0.8 thou/uL (0.11-0.59); #Neutrophils 5.2 thou/uL (1.40-6.50); %Basophils 0.3 % (0.0-1.0); %Lymphocytes 17.1 % (21.0-51.0); %Monocytes 11.2 % (0.0-10.0); %Neutrophils 68.5 % (42.0-75.0); Hemoglobin 11.3 g/dL (12.0-16.0); Mean Corpuscular HGB CONC 31.7 g/dL (32.0-36.0); Mean Corpuscular Hemoglobin 31.6 pg (27.0-31.0); Mean Corpuscular Volume 99.6 fL (78.0-98.0); Mean Platelet Volume 7.6 fL (7.4-10.4); Platelet Count 188 thou/uL (130-400); RBC Distribution Width 11.1 % (11.5-14.5); Red Blood Cell (RBC) Count 3.58 mill/uL (4.20-5.40); White Blood Cell (WBC) Count 7.6 thou/uL (4.8-10.8)
[2019-12-27 06:38] LABS: ALT (SGPT) Less than 7 U/L (8-55); AST (SGOT) 9 U/L (5-34); Albumin 2.8 g/dL (3.4-4.8); Alkaline Phosphatase 90 U/L (40-110); Anion Gap 9 mmol/L (10-20); BUN (Urea Nitrogen) Less than 4 mg/dL (9.8-20.1); Bilirubin, Total 0.3 mg/dL (0.2-1.2); Calc. Creatinine Clearance 106 mL/min (70-130); Calcium 7.5 mg/dL (7.8-10.44); Carbon Dioxide 25 mmol/L (23-31); Chloride 107 mmol/L (98-107); Estimated GFR-MDRD Greater than 90; Globulin 2.3 g/dL (2.4-3.5); Glucose 117 mg/dL (80-115); Potassium 4.5 mmol/L (3.5-5.1); Protein, Total 5.1 g/dL (6.0-8.3); Sodium 136 mmol/L (136-145)
[2019-12-27] MEDS: levETIRAcetam 500 mg/5 ml Oral Solution PER TUBE SCH ×2 (08:46→21:06)
[2019-12-27] MEDS: Potassium Chloride 20 MEQ TAB PO SCH ×2 (08:47→20:52)
[2019-12-27] MEDS: Polyethylene Glycol 3350 17 GM Packet PO SCH (08:47)
[2019-12-27] MEDS: Pantoprazole 40 MG VIAL IVP SCH ×2 (08:47→20:54)
[2019-12-27] MEDS: OXcarbazepine 300 MG TAB PO SCH ×2 (08:48→20:52)
[2019-12-27] MEDS: PHENobarbital 32.4 MG TAB PO SCH ×2 (08:48→20:54)
[2019-12-27] MEDS: Lacosamide 50 mg Tablet PO SCH ×2 (08:48→20:51)
[2019-12-27] MEDS: clonazePAM 1 MG TAB PO SCH (08:49)
--- NOTE | 2019-12-27 17:02 | PRG ---
DATE OF SERVICE: 12/27/2019 SUBJECTIVE: Ms. Albright is doing well today. Her colostomy is working well. It is celso pink. She has stool and flatus. She is tolerating her regular diet. OBJECTIVE: VITAL SIGNS: 98 degrees, 58, 102/65. LUNGS: Clear to auscultation. CARDIAC: Regular rate and rhythm. No murmur or gallop. ABDOMEN: Soft. LABORATORIES: Normal. Basic metabolic profile normal. ASSESSMENT AND PLAN: The patient is doing well. The patient can be discharged anytime from a surgical standpoint. She can follow up with Dr. Davies in 2 to 3 weeks. The patient is ready for discharge from a surgical standpoint. Job ID: [id number]
--- NOTE | 2019-12-27 18:11 | PDOC.HOSPP ---
- Subjective Encounter Date: 12/27/19 Encounter Time: 09:30 Subjective: Patient seen and examined for medical management. Somnolent. Denies any abdominal pain. No seizures reported. - Objective Vital Signs & Weight: Vital Signs (12 hours) Temp Pulse Resp BP Pulse Ox 12/27/19 16:00 98.1 F 51 L 16 93/38 L 99 12/27/19 08:00 98 Weight Admit Weight 147 lb 5.008 oz Weight 147 lb 5 oz I&O: 12/26/19 12/27/19 12/28/19 06:59 06:59 06:59 Intake Total 1200 1979 Output Total 1600 Balance -400 1979 Result Diagrams: 12/27/19 06:02 12/27/19 06:02 Hospitalist ROS - Review of Systems Respiratory: denies: cough, dry, shortness of breath, hemoptysis, SOB with excertion, pleuritic pain, sputum, wheezing, other Cardiovascular: denies: chest pain, palpitations, orthopnea, paroxysmal noc. dyspnea, edema, light headedness, other - Medication Medications: Active Medications Generic Name Dose Route Start Last Admin Trade Name Freq PRN Reason Stop Dose Admin Clonazepam 1 mg 12/26/19 09:00 12/27/19 08:49 Clonazepam 1 Mg Tab PO 1 mg TID INGA Administration Potassium Chloride/Dextrose/Sod Cl 1,000 mls @ 120 mls/hr 12/23/19 13:45 12/27/19 08:51 D5 1/2 Ns W/20 Meq Kcl IV 1,000 mls .Q8H20M INGA Administration Lacosamide 200 mg 12/23/19 21:00 12/27/19 08:48 Lacosamide 50 Mg Tablet PO 200 mg BID INGA Administration Levetiracetam 1,500 mg 12/23/19 21:00 12/27/19 08:46 Levetiracetam 500 Mg/5 Ml Oral Solution PER TUBE 1,500 mg BID INGA Administration Morphine Sulfate 2 mg 12/23/19 13:39 12/26/19 08:38 Morphine 2 Mg/Ml Vial SLOW IVP 2 mg Q4H PRN Administration Pain Oxcarbazepine 600 mg 12/26/19 09:00 12/27/19 08:48 Oxcarbazepine 300 Mg Tab PO 600 mg BID INGA Administration Pantoprazole Sodium 40 mg 12/23/19 21:00 12/27/19 08:47 Pantoprazole 40 Mg Vial IVP 40 mg Q12HR INGA Administration Phenobarbital 32.4 mg 12/26/19 09:00 12/27/19 08:48 Phenobarbital 32.4 Mg Tab PO 32.4 mg BID INGA Administration Polyethylene Glycol 17 gm 12/26/19 09:00 12/27/19 08:47 Polyethylene Glycol 3350 17 Gm Packet PO 17 gm DAILY INGA Administration Potassium Chloride 20 meq 12/26/19 09:00 12/27/19 08:47 Potassium Chloride 20 Meq Tab PO 20 meq BID INGA Administration Tramadol HCl 50 mg 12/26/19 08:15 12/27/19 15:57 Tramadol Hcl 50 Mg Tab PO 50 mg Q4H PRN Administration Moderate Pain (4-6) Zolpidem Tartrate 5 mg 12/26/19 21:00 12/26/19 23:00 Zolpidem Tartrate 5 Mg Tab PO 5 mg HS INGA Administration - Exam General Appearance: NAD Heart: RRR, no gallops Respiratory: no wheezes, no rales Gastrointestinal: soft, no guarding, no rigidity Extremities: no cyanosis Musculoskeletal: generalized weakness Psychiatric: somnolent Hosp A/P - Plan DVT proph w/SCDs 64-year-old female with seizure disorder on multiple antiepileptic drugs presented with abdominal pain. Patient currently admitted under general surgery service. Hospitalist team consulted for medical management.Phenobarbital, Keppra and Vimpat were initially changed to IV due to npo status. #Seizure disorderpatient had a brief seizure during her initial hospital stay. There was no postictal confusion. #Vitamin B12 deficiency. Vitamin B12 was 177. #Hyponatremiaprobably due to dehydration #Hypomagnesemia #Chronic anemia probably due to nutritional deficiency #GERD Plan: Continue Keppra, phenobarbital and Vimpat. Will hold clonazepam due to increased somnolence. Continue vitamin B12 supplementation Reduce IV fluid Recheck labs in a.m. Speech therapy evaluation for possible aspiration per RN Continue to monitor closely
[2019-12-27] MEDS: Zolpidem Tartrate 5 MG TAB PO SCH (20:54)
[2019-12-28] MEDS: D5 1/2 NS w/20 mEq KCL 1,000 ML IV SCH (04:14)
[2019-12-28] MEDS: traMADol HCl 50 MG TAB PO PRN (04:43)
[2019-12-28 06:38] LABS: Anion Gap 10 mmol/L (10-20); BUN (Urea Nitrogen) 5 mg/dL (9.8-20.1); Calc. Creatinine Clearance 97 mL/min (70-130); Calcium 7.7 mg/dL (7.8-10.44); Carbon Dioxide 24 mmol/L (23-31); Chloride 108 mmol/L (98-107); Estimated GFR-MDRD Greater than 90; Glucose 107 mg/dL (80-115); Magnesium 1.6 mg/dL (1.6-2.6); Potassium 4.8 mmol/L (3.5-5.1); Sodium 137 mmol/L (136-145)
--- NOTE | 2019-12-28 08:46 | PRG ---
DATE OF SERVICE: SUBJECTIVE: Shell Albright is seen for Dr. Davies. She is doing well. She is tolerating her diet. OBJECTIVE: VITAL SIGNS: 98.2 degrees, 93/55, respiratory rate 20. LUNGS: Clear to auscultation. CARDIAC: Regular rate and rhythm without murmur or gallop. ABDOMEN: Soft. Postoperative tenderness. No guarding. Colostomy healthy with stool and flatus. LABORATORY DATA: Laboratories yesterday revealed hemoglobin 11, white count of 7.6, it has been stable the last few days. Basic metabolic profile is normal today. The patient is tolerating her diet. ASSESSMENT AND PLAN: Doing well status post laparoscopic colectomy and colostomy. The patient is stable for discharge from a surgical standpoint. [facility] We will see her as needed this hospitalization. Job ID: [id number]
[2019-12-28] MEDS: Lacosamide 50 mg Tablet PO SCH (09:34)
[2019-12-28] MEDS: Polyethylene Glycol 3350 17 GM Packet PO SCH (09:36)
[2019-12-28] MEDS: OXcarbazepine 300 MG TAB PO SCH (09:36)
[2019-12-28] MEDS: PHENobarbital 32.4 MG TAB PO SCH (09:36)
[2019-12-28] MEDS: Potassium Chloride 20 MEQ TAB PO SCH (09:36)
[2019-12-28] MEDS: Pantoprazole 40 MG VIAL IVP SCH (09:36)
[2019-12-28] MEDS: levETIRAcetam 500 mg/5 ml Oral Solution PER TUBE SCH (09:40)
[2019-12-28 11:39] VITALS: BP 85/47; TEMP 97.7
--- NOTE | 2019-12-29 15:53 | DIS ---
DATE OF ADMISSION: 12/24/2019 DATE OF DISCHARGE: 12/28/2019 DISPOSITION: Transfer to shelter on 12/27. DISCHARGE DIAGNOSES: Chronic constipation, colonic motility disorder, fecal impaction, developmental delay, epilepsy, hemiplegia, dysarthria listed, although no known history of stroke or OR. The patient has had frequent falls, broken bones, nonambulatory, history of left hip open reduction and internal fixation, ankle fracture, sigmoid colectomy for volvulus a month ago. HISTORY: A 64-year-old female admitted with seizure disorder, developmental delay, motility and fecal impaction, evaluated by Dr. Davies, noting the entire rectum packed with stool, concerned about impact on colorectal anastomosis from sigmoid resection for volvulus a month ago and erosion. Taken to the operating room for laparoscopic-assisted left colectomy and colostomy, postoperatively convalesced, tolerated her diet and did well, now discharged back to the shelter with colostomy care and resumption of care as preoperative period. DISCHARGE MEDICATIONS: 1. Tylenol. 2. Advil [id number]. Resumption of home medications; 1. Vimpat. 2. DuoNeb. 3. Furosemide. 4. MiraLAX. 5. Keppra. 6. Klonopin. 7. Ambien. FOLLOWUP: Follow up with Dr. Davies in 2 to 3 weeks. Diet and activity as tolerated. Job ID: [id number]
== END 2019-12-28 15:32 | DRG 330 ==
LOC: ERS 19:46 → T4-B 12-23 00:34 → OBSVTOIN 12-24 14:16
PROVIDERS: ADMIT Surgery; ATTEND Surgery
PROC: 0DBN0ZZ Excision of Sigmoid Colon, Open Approach (ICD-10-PCS; principal; 2019-12-24)
DX: K56.41 Fecal impaction (principal); E87.1 Hypo-osmolality and hyponatremia; I69.354 Hemiplegia and hemiparesis following cerebral infarction affecting left non-dominant side; K59.39 Other megacolon; G40.909 Epilepsy, unspecified, not intractable, without status epilepticus; R62.50 Unspecified lack of expected normal physiological development in childhood; K21.9 Gastro-esophageal reflux disease without esophagitis; R47.1 Dysarthria and anarthria; E83.42 Hypomagnesemia; D53.9 Nutritional anemia, unspecified; E53.8 Deficiency of other specified B group vitamins; Z90.49 Acquired absence of other specified parts of digestive tract; I69.322 Dysarthria following cerebral infarction; Z20.828 Contact with and (suspected) exposure to other viral communicable diseases
CPT/HCPCS: 36415; 36416; 74019; 74177; 74283; 80048; 80053; 80177; 82607; 82746; 83690; 83735; 84100; 85025; 87324; 87449; 87635; 88307; 96374; 96375; 96376; C9113; C9254; G0378; J0694; J1100; J1953; J2060; J2250; J2270; J2405; J2560; J2704; J3010; J3420; J3475; J3480; Q9963; Q9967; U0003

== ENCOUNTER 2024-10-29 18:17 | Emergency (ER) | payer MEDICAID, MEDICARE ==
[2024-10-29 19:18] LABS: Bacteria/HPF None Seen HPF (None Seen); CAUTI Indications for Culture Dysuria,urgency,freq; Glucose, Urine (Dipstick) Normal (Negative); Leukocyte 500 Leu/uL (Negative); Protein, Urine (Dipstick) 50 mg/dL (Neg-Trace); RBC/HPF 21-50 HPF (0-3); Specific Gravity, Urine 1.018 (1.002-1.036); WBC/HPF Greater than 50 HPF (0-3)
[2024-10-29 19:20] LABS: Urine Culture Reflex Yes Yes
[2024-10-29] MEDS ORDERED: cefTRIAXone (ROCEPHIN) 1 GM VIAL ONE (20:11)
[2024-10-29 20:53] LABS: #Basophils 0.04 10x3/uL (0.0-0.2); #Eosinophils 0.13 10x3/uL (0.0-0.7); #Monocytes 1.16 10x3/uL (0.11-0.59); #Neutrophils 7.49 10x3/uL (1.40-6.50); %Basophils 0.4 % (0.0-1.0); %Eosinophils 1.2 % (0.0-10.0); %Lymphocytes 17.4 % (21.0-51.0); %Monocytes 10.8 % (0.0-10.0); %Neutrophils 69.9 % (42.0-75.0); Hematocrit 34.6 % (36.0-47.0); Hemoglobin 11.1 g/dL (12.0-16.0); Mean Corpuscular Hemoglobin 29.8 pg (27.0-31.0); Mean Corpuscular Volume 93.0 fL (78.0-98.0); Platelet Count 193 10x3/uL (130-400); Red Blood Cell (RBC) Count 3.72 mill/uL (4.20-5.40); White Blood Cell (WBC) Count 10.71 10x3/uL (4.8-10.8)
[2024-10-29 21:09] LABS: INR-International Normal Ratio 1.1; PTT 36.9 sec (22.9-36.1); Prothrombin Time 14.5 sec (12.0-14.7)
[2024-10-29 21:19] LABS: ALT (SGPT) 16 U/L (Less than 34); AST (SGOT) 25 U/L (11-34); Albumin 3.1 g/dL (3.1-4.5); Alkaline Phosphatase 130 U/L (40-110); Anion Gap 12 mmol/L (10-20); BUN (Urea Nitrogen) 10 mg/dL (9.8-20.1); Bilirubin, Total 0.3 mg/dL (0.3-1.2); Calc. Creatinine Clearance 0 mL/min (70-130); Calcium 8.9 mg/dL (7.8-10.44); Carbon Dioxide 26 mmol/L (23-31); Chloride 104 mmol/L (98-107); Globulin 3.4 g/dL (2.4-3.5); Glucose 98 mg/dL (83-110); Potassium 3.7 mmol/L (3.5-5.1); Sodium 138 mmol/L (136-145)
== END 2024-10-30 00:46 | disposition home or self-care (01) ==
LOC: ERS 18:17
DX: S00.03XA Contusion of scalp, initial encounter (principal); N39.0 Urinary tract infection, site not specified; G40.909 Epilepsy, unspecified, not intractable, without status epilepticus; I69.954 Hemiplegia and hemiparesis following unspecified cerebrovascular disease affecting left non-dominant side; K21.9 Gastro-esophageal reflux disease without esophagitis; Z55.6 Problems related to health literacy; Z79.02 Long term (current) use of antithrombotics/antiplatelets; Z79.899 Other long term (current) drug therapy; W01.10XA Fall on same level from slipping, tripping and stumbling with subsequent striking against unspecified object, initial encounter
CPT/HCPCS: 36415; 70450; 71260; 72125; 74177; 80053; 81001; 84484; 85025; 85610; 85730; 87086; 93005; 96365; J0696